=== PATIENT | male | born 1995 | race African-American/Black ===

== ENCOUNTER → 2017-05-12 | Outpatient (CLI) | payer OTHER ==
[~2017-05-12] MED LIST: RANI150T PO
[2017-05-12 13:30] LABS: ANION GAP 6 MEQ/L (8-16); BLOOD UREA NITROGEN 13 MG/DL (7-18); CALCIUM LEVEL 9.6 MG/DL (8.5-10.1); CARBON DIOXIDE LEVEL 29 MEQ/L (21-32); CHLORIDE LEVEL 103 MEQ/L (98-107); CREATININE FOR GFR 1.14 MG/DL (0.70-1.30); GLOMERULAR FILTRATION RATE > 60.0 (>60); GLUCOSE, FASTING 97 MG/DL (70-105); POTASSIUM SERUM 4.2 MEQ/L (3.5-5.1); SODIUM LEVEL 138 MEQ/L (136-145)
[2017-05-12 13:49] LABS: INR 0.94
[2017-05-12 14:02] LABS: MEAN CORPUSCULAR HGB CONC 33.8 g/dl (32.0-36.5); MEAN CORPUSCULAR VOLUME 88.8 fl (80.0-96.0); RED CELL DISTRIBUTION WIDTH 12.4 % (11.5-14.5); WHITE BLOOD COUNT 6.6 K/mm3 (4.0-10.0)
== END ==
LOC: M SMT 08:40
PROVIDERS: ATTEND Nurse Practitioner Women's Health
DX: Z01.818 Encounter for other preprocedural examination (principal); N47.1 Phimosis

== ENCOUNTER 2017-05-18 07:50 | Day surgery (SDC) | payer OTHER ==
[~2017-05-18] VITALS: Ht 182.9 cm; Wt 74.8 kg
[2017-05-18] MEDS ORDERED: LR 1,000 ML IV ONE (08:00)
[2017-05-18] MEDS ORDERED: MIDAZOLAM INJ 2 MG/2 ML VIAL (J2250) As Ordered ONE (08:55)
[2017-05-18] MEDS ORDERED: LIDOCAINE 2% INJ 100 MG/5 ML SDV (FOR ANES.) As Ordered ONE (08:55)
[2017-05-18] MEDS ORDERED: PROPOFOL 200 MG/20 ML VIAL As Ordered ONE (08:55)
[2017-05-18] MEDS ORDERED: fentaNYL 100 MCG/2 ML INJECTION (J3010) As Ordered ONE ×2 (08:55→09:06)
[2017-05-18] MEDS ORDERED: ONDANSETRON 4MG/2ML VIAL (J2405) As Ordered ONE (08:59)
[2017-05-18] MEDS ORDERED: SEVOFLURANE INHAL SOLN 250 ML BTL As Ordered ONE (09:09)
[2017-05-18] MEDS ORDERED: BACITRACIN OINT 30GM As Ordered ONE (09:38)
[2017-05-18] MEDS ORDERED: HYDROmorphone HCL 2 MG/ML 1ML VIAL (J1170) As Ordered ONE (09:49)
[2017-05-18] MEDS ORDERED: LIDOCAINE 5% OINT 30 GM As Ordered ONE (09:49)
--- NOTE | 2017-05-18 10:40 | ROOPDOC ---
[facility] Report Of Operation Report of Operation DATE OF PROCEDURE: 05/18/17 PREPROCEDURE DIAGNOSIS: Phimosis. POSTPROCEDURE DIAGNOSIS: Phimosis. PROCEDURE: Circumcision. SURGEON: Dr. Avani Valdes BUFFING WHEEL RAKER: None ANESTHESIA: General. OPERATIVE INDICATIONS: This is a 22-year-old male who has been recurrent episodes of foreskin pain and irritation. He has requested a circumcision for treatment. He is brought to the operating room today for circumcision. DESCRIPTION OF PROCEDURE: The patient was brought to the operating room and general anesthesia was administered. Prophylactic antibiotics were infused. He was placed in the supine position and prepped and draped in the usual sterile fashion. At this point, a #0 Vicryl retraction stitch was placed through the glans. We then made circumcising incisions on the outside of the foreskin at the level where it was just proximal to the coronal sulcus. The second circumcising incision was made on the inside of the foreskin at the level just proximal to the coronal sulcus. We then connected these two circumcising incisions. All of the foreskin in between the incisions was then removed using electrocautery. At this point, we checked for hemostasis and any areas of bleeding were controlled with electrocautery. We then reapproximated the skin of the penile shaft to the glans using interrupted #2-0 chromic sutures. Once the skin was reapproximated, dressings were then applied, starting first with a Devi dressing and then a Coban dressing on top. We then removed the #0 Vicryl retraction stitch and pressure was applied, stopping the bleeding. This marked the conclusion of the procedure. The patient was then awakened from anesthesia and transported to the recovery room in stable condition. ESTIMATED BLOOD LOSS: 5 mL. COMPLICATIONS: None. SPECIMENS: Foreskin. PLAN: The patient will remove his dressings in 2 days. He will followup in the clinic in a few weeks for a postoperative visit. AVANI VALDES MD May 18, 2017 10:40
[2017-05-18] MEDS ORDERED: LR 1,000 ML IV SCH (11:00)
[2017-05-18] MEDS ORDERED: ONDANSETRON 4MG/2ML VIAL (J2405) IV PRN (11:00)
[2017-05-18] MEDS ORDERED: MEPERIDINE INJ 25 MG/ML VIAL (J2175) IV PRN (11:00)
[2017-05-18] MEDS ORDERED: METOCLOPRAMIDE INJ 10MG/2ML VIAL (J2765) IV PRN (11:00)
[2017-05-18] MEDS ORDERED: fentaNYL 100 MCG/2 ML INJECTION (J3010) IV PRN (11:00)
[2017-05-18] MEDS ORDERED: PERCOCET 5MG/325MG TAB PO PRN ×2 (11:00)
[2017-05-18] MEDS: PERCOCET 5MG/325MG TAB PO PRN ×2 (11:22→11:53)
[2017-05-18 14:45] VITALS: BP 137/78
== END 2017-05-18 14:46 | disposition home or self-care (01) ==
LOC: M SDC 07:50 → EDUNIT# 08:45 → M SDC 14:46
PROVIDERS: ATTEND Urology
DX: N47.1 Phimosis (principal); K21.9 Gastro-esophageal reflux disease without esophagitis; Z72.0 Tobacco use
CPT/HCPCS: 54161; 88304; J1170; J2250; J2405; J3010